=== PATIENT | male | born 1955 | race Caucasian/White ===

== ENCOUNTER 2022-10-28 12:43 | Emergency (ER) | payer OTHER ==
[~2022-10-28] VITALS: Ht 177.8 cm; Wt 95.3 kg
[2022-10-28] MEDS ORDERED: PLAVIX75 MG PO (13:06)
[2022-10-28] MEDS ORDERED: ECOTRIN81 MG PO (13:06)
[2022-10-28] MEDS ORDERED: LOTREL 5-20 MG1 CAP PO (13:06)
[2022-10-28] MEDS ORDERED: LIPITOR40 MG PO (13:07)
[2022-10-28] MEDS ORDERED: KETO10TA2 PO (18:24)
[2022-10-28] MEDS ORDERED: TAMS0.4C PO (18:24)
== END 2022-10-28 18:31 | disposition home or self-care (01) ==
LOC: ER 12:43
DX: N20.1 Calculus of ureter (principal); N28.89 Other specified disorders of kidney and ureter; K57.30 Diverticulosis of large intestine without perforation or abscess without bleeding; Z88.8 Allergy status to other drugs, medicaments and biological substances; I10 Essential (primary) hypertension